=== PATIENT | female | born 1955 | race Caucasian/White ===

== ENCOUNTER → 2016-07-27 | Outpatient (CLI) | payer BC ==
--- NOTE | 2016-07-28 09:52 | MM ---
Reason for exam: screening (asymptomatic). Last mammogram was performed 1 year and 1 month ago. History: Patient is postmenopausal. Family history of breast cancer in sister at age 32 and breast cancer in sister at age 45. Benign excisional biopsy of the right breast, 1979. Took estrogen for 10 years beginning at age 45. Took progesterone for 10 years beginning at age 45. Physical Findings: A clinical breast exam by your physician is recommended on an annual basis and results should be correlated with mammographic findings. MG Screening Mammo w CAD Bilateral CC and MLO view(s) were taken. Prior study comparison: July 01, 2015, bilateral MG screening mammo w CAD. June 17, 2014, bilateral MG screening mammo w CAD. The breast tissue is heterogeneously dense. This may lower the sensitivity of mammography. There is chronic nodularity bilaterally, stable. No significant changes when compared with prior studies. ASSESSMENT: Benign, BI-RAD 2 RECOMMENDATION: Routine screening mammogram of both breasts in 1 year.
== END | disposition home or self-care (01) ==
LOC: RADMAMWWP 08:34
PROVIDERS: ATTEND Internal Medicine
DX: Z12.31 Encounter for screening mammogram for malignant neoplasm of breast (principal)

== ENCOUNTER → 2017-08-07 | Outpatient (CLI) | payer BC ==
--- NOTE | 2017-08-08 10:45 | MM ---
Reason for exam: screening (asymptomatic). Last mammogram was performed 1 year ago. History: Patient is postmenopausal. Family history of breast cancer in sister at age 32 and breast cancer in sister at age 45. Benign excisional biopsy of the right breast, 1979. Took estrogen for 10 years beginning at age 45. Took progesterone for 10 years beginning at age 45. Physical Findings: A clinical breast exam by your physician is recommended on an annual basis and results should be correlated with mammographic findings. MG Screening Mammo w CAD Bilateral CC and MLO view(s) were taken. Prior study comparison: July 27, 2016, bilateral MG screening mammo w CAD. July 01, 2015, bilateral MG screening mammo w CAD. June 17, 2014, bilateral MG screening mammo w CAD. The breast tissue is heterogeneously dense. This may lower the sensitivity of mammography. Finding: There are typically benign dystrophic, round calcifications in both breasts. There is a chronic nodularity in the left breast. There is no discrete abnormality. ASSESSMENT: Benign, BI-RAD 2 RECOMMENDATION: Routine screening mammogram of both breasts in 1 year.
== END | disposition home or self-care (01) ==
LOC: RADMAMWWP 09:35
PROVIDERS: ATTEND Obstetrics & Gynecology
DX: Z12.31 Encounter for screening mammogram for malignant neoplasm of breast (principal)
CPT/HCPCS: 77067

== ENCOUNTER → 2018-10-02 | Outpatient (CLI) | payer MEDICARE ==
--- NOTE | 2018-10-03 10:54 | MM ---
Reason for exam: screening (asymptomatic). Last mammogram was performed 1 year and 2 months ago. History: Patient is postmenopausal. Family history of breast cancer in sister at age 32 and breast cancer in sister at age 45. Benign excisional biopsy of the right breast, 1979. Took estrogen for 10 years beginning at age 45. Took progesterone for 10 years beginning at age 45. Physical Findings: A clinical breast exam by your physician is recommended on an annual basis and results should be correlated with mammographic findings. MG 3D Screening Mammo W/Cad Bilateral CC and MLO view(s) were taken. Prior study comparison: August 07, 2017, bilateral MG screening mammo w CAD. July 27, 2016, bilateral MG screening mammo w CAD. The breast tissue is heterogeneously dense. This may lower the sensitivity of mammography. Post surgical change on the right. Stable left inferior middle depth asymmetry. ASSESSMENT: Benign, BI-RAD 2 RECOMMENDATION: Routine screening mammogram of both breasts in 1 year.
== END | disposition home or self-care (01) ==
LOC: RADMAMWWP 08:09
PROVIDERS: ATTEND Internal Medicine
DX: Z12.31 Encounter for screening mammogram for malignant neoplasm of breast (principal)
CPT/HCPCS: 77063; 77067

== ENCOUNTER → 2020-01-30 | Outpatient (CLI) | payer MEDICARE ==
--- NOTE | 2020-02-02 10:14 | MM ---
Reason for exam: screening (asymptomatic). Last mammogram was performed 1 year and 4 months ago. History: Patient is postmenopausal. Family history of breast cancer in sister at age 32 and breast cancer in sister at age 45. Benign excisional biopsy of the right breast, 1979. Took estrogen for 10 years beginning at age 45. Took progesterone for 10 years beginning at age 45. Physical Findings: A clinical breast exam by your physician is recommended on an annual basis and results should be correlated with mammographic findings. MG 3D Screening Mammo W/Cad Bilateral CC and MLO view(s) were taken. Prior study comparison: October 02, 2018, bilateral MG 3d screening mammo w/cad. August 07, 2017, bilateral MG screening mammo w CAD. There are scattered fibroglandular densities. No significant changes when compared with prior studies. ASSESSMENT: Benign, BI-RAD 2 RECOMMENDATION: Routine screening mammogram of both breasts in 1 year.
== END | disposition home or self-care (01) ==
LOC: RADMAMWWP 11:14
PROVIDERS: ATTEND Internal Medicine
DX: Z12.31 Encounter for screening mammogram for malignant neoplasm of breast (principal)
CPT/HCPCS: 77063; 77067

== ENCOUNTER → 2020-11-16 | Outpatient (CLI) | payer MEDICARE ==
--- NOTE | 2020-11-16 12:05 | EST ---
EXERCISE STRESS AGE: 65 SEX: Female HT: 5'5" WT: 135 pounds PROTOCOL: Cardiolite Nikunj STAGE: II DURATION OF EXERCISE: 7 minutes 10 seconds HEART RATE REST: 73 BLOOD PRESSURE REST: 141/78 MAXIMUM HEART RATE ACHIEVED: 150 MAXIMUM BLOOD PRESSURE: 181/76 85% MPHR: 130 100% MPHR: 153 METS: 8.7 INDICATIONS: CLINICAL INFORMATION: Baseline rhythm is a sinus mechanism, rate of 73, normal axis and intervals, poor R progression from V1 to V3. Baseline blood pressure 141/78 mmHg. Patient exercised on Nikunj protocol for 7 minutes 10 seconds reaching peak rate 150 beats per minute which is equal to 98% maximum predicted heart rate. Peak blood pressure are 181/76 mmHg. Test was terminated secondary to fatigue. There was no chest pain. Electrocardiograph monitoring revealed no evidence of diagnostic ischemic ST deviation. Cardiolite was injected at peak exercise. CONCLUSION: 1. Average exercise tolerance with normal electrocardiograph response to exercise. 2. Nuclear images will be reported separately. MMODL / IJN: [id number] /
--- NOTE | 2020-11-16 12:27 | NM ---
EXAMINATION TYPE: NM stress cardiolite complete DATE OF EXAM: 11/16/2020 COMPARISON: NONE HISTORY: Septal myocardial infarction TECHNIQUE: After the intravenous administration of 9.5 mCi Tc 99m Sestamibi - Rest images obtained 4 5 minutes post injection. The patient exercised using a JESUS protocol and 1 minute prior to peak e xercise was injected with 25.3 mCi Tc 99m Sestamibi - Stress images obtained 10 minutes post injectio n. FINDINGS: Targeted heart rate was achieved during performance of the study. Review of stress and rest SPECT perez ges demonstrates no distinct perfusion abnormality. Gated analysis shows minimal dysmotility of the septum wall. There is septal wall motion with no evidence of complete scar. Estimated left ventricula r ejection fraction of 73 %. IMPRESSION: 1. No scintigraphic evidence for reversible ischemia. 2. Ejection fraction 73%. 3. Minimal septal wall dysmotility.
== END | disposition home or self-care (01) ==
LOC: RADNMMAIN 08:21
PROVIDERS: ATTEND Internal Medicine
DX: I21.29 ST elevation (STEMI) myocardial infarction involving other sites (principal)
CPT/HCPCS: 93017; 78452; A9500

== ENCOUNTER → 2020-12-09 | Outpatient (CLI) | payer MEDICARE ==
--- NOTE | 2020-12-11 15:00 | ECHOF ---
Referral Reason:I21.29 MEASUREMENTS -------- HEIGHT: 168.9 cm WEIGHT: 59.0 kg BP: 122/58 IVSd: 1.1 cm (0.6 - 1.1) LVIDd: 3.6 cm (3.9 - 5.3) LVPWd: 1.0 cm (0.6 - 1.1) EDV(Teich): 55 ml IVSs: 1.4 cm LVIDs: 2.3 cm LVPWs: 1.3 cm %IVS Thck: 26 % ESV(Teich): 18 ml EF(Teich): 67 % %FS: 36 % SV(Teich): 37 ml LA Diam: 3.0 cm (2.7 - 3.8) RVIDd: 2.9 cm (< 3.3) LALs A4C: 4.5 cm LAAs A4C: 12.5 cm LAESV A-L A4C: 29 ml LAESV MOD A4C: 26 ml LALs A2C: 5.9 cm LAAs A2C: 13.8 cm LAESV A-L A2C: 27 ml LAESV MOD A2C: 25 ml LAESV(A-L): 32 ml LAESV Index (A-L): 19.14 ml/m Ao Diam: 2.5 cm (2.0 - 3.7) AV Cusp: 1.8 cm (1.5 - 2.6) EPSS: 0.3 cm MV E Ramírez: 0.67 m/s MV DecT: 205 ms MV Dec [place]: 3.3 m/s MV A Ramírez: 0.51 m/s MV E/A Ratio: 1.32 MV PHT: 59 ms AV Vmax: 1.38 m/s AV maxP.57 mmHg TR Vmax: 2.51 m/s TR maxP.18 mmHg RAP: 5.00 mmHg RVSP: 30.18 mmHg MV EF SLOPE: 127.40 mm/s (70 - 150) MV EXCURSION: 17.70 mm (> 18.000) FINDINGS -------- Sinus rhythm. This was a technically good study. The left ventricular size is normal. Left ventricular wall thickness is normal. Overall left vent ricular systolic function is normal with, an EF between 60 - 65 %. The right ventricle is normal in size. Normal LA size by volume 22+/-6 ml/m2. The right atrium is normal in size. Interatrial and interventricular septum intact. The aortic valve is trileaflet, and appears structurally normal. No aortic stenosis or regurgitation. Mild mitral regurgitation is present. Mild tricuspid regurgitation present. Right ventricular systolic pressure is normal at < 35 mmHg. Trace/mild (physiologic) pulmonic regurgitation. The aortic root size is normal. Normal inferior vena cava with normal inspiratory collapse consistent with estimated right atrial pre ssure of 5 mmHg. There is no pericardial effusion. CONCLUSIONS -------- 1. The left ventricular size is normal. 2. Left ventricular wall thickness is normal. 3. Overall left ventricular systolic function is normal with, an EF between 60 - 65 %. 4. The aortic valve is trileaflet, and appears structurally normal. No aortic stenosis or regurgitati on. 5. Mild mitral regurgitation is present. 6. Mild tricuspid regurgitation present. 7. Trace/mild (physiologic) pulmonic regurgitation. 8. There is no pericardial effusion. [employer]: Janell Sher RDCS
== END | disposition home or self-care (01) ==
LOC: RADECHMAIN 13:02
PROVIDERS: ATTEND Internal Medicine
DX: I08.8 Other rheumatic multiple valve diseases (principal)
CPT/HCPCS: 93306

== ENCOUNTER → 2021-01-31 | Outpatient (CLI) | payer MEDICARE ==
--- NOTE | 2021-02-02 08:19 | MM ---
Reason for exam: screening (asymptomatic). Last mammogram was performed 1 year ago. History: Patient is postmenopausal. Family history of breast cancer in sister at age 32 and breast cancer in sister at age 45. Benign excisional biopsy of the right breast, 1979. Took hormonal contraceptives for 2 years. Took estrogen for 10 years beginning at age 45. Took progesterone for 10 years beginning at age 45. Physical Findings: A clinical breast exam by your physician is recommended on an annual basis and results should be correlated with mammographic findings. MG 3D Screening Mammo W/Cad Bilateral CC and MLO view(s) were taken. Prior study comparison: January 30, 2020, bilateral MG 3d screening mammo w/cad. October 02, 2018, bilateral MG 3d screening mammo w/cad. The breast tissue is heterogeneously dense. This may lower the sensitivity of mammography. There is chronic nodularity bilaterally. No significant changes when compared with prior studies. ASSESSMENT: Benign, BI-RAD 2 RECOMMENDATION: Routine screening mammogram of both breasts in 1 year.
== END | disposition home or self-care (01) ==
LOC: RADMAMWWP 09:32
PROVIDERS: ATTEND Internal Medicine
DX: Z12.31 Encounter for screening mammogram for malignant neoplasm of breast (principal); Z78.0 Asymptomatic menopausal state; Z80.3 Family history of malignant neoplasm of breast; Z79.3 Long term (current) use of hormonal contraceptives
CPT/HCPCS: 77063; 77067

== ENCOUNTER → 2022-02-01 | Outpatient (CLI) | payer MEDICARE ==
--- NOTE | 2022-02-02 19:27 | MM ---
Reason for Exam: Screening (asymptomatic). Last screening mammogram was performed 12 month(s) ago. Patient History: Menarche at age 12. First Full-Term at age 19. Postmenopausal. Patient has history of breast feeding. Estrogen, starting at age 45 for 10 years. Progesterone, starting at age 45 for 10 years. Patient used Hormonal Contraceptives for 2 years. 1980, Benign Excisional Biopsy on the right side. Sister had breast cancer, age 32. Sister had breast cancer, age 45. Risk Values: Morena 5 year model risk: 7.4%. NCI Lifetime model risk: 22.2%. Prior Study Comparison: 07/27/2016 Bilateral Screening Mammogram, [facility]. 08/07/2017 Bilateral Screening Mammogram, [facility]. 10/02/2018 Bilateral Screening Mammogram, [facility]. 01/30/2020 Bilateral Screening Mammogram, [facility]. 01/31/2021 Bilateral Screening Mammogram, [facility]. Tissue Density: The breast tissue is heterogeneously dense. This may lower the sensitivity of mammography. Findings: Analyzed By CAD. Chronic nodularity left breast. Either a dense focal calcification versus a microclip related to prior biopsy in the posterior upper-outer quadrant of the left breast. Clinically correlate. Otherwise, no significant change from prior exams. Overall Assessment: Benign, BI-RAD 2 Management: Screening Mammogram of both breasts in 1 year. 1. We note that patient's lifetime risk for development of breast cancer as over 20%. The patient may qualify for alternating screening mammogram and screening breast MRI at 6 month intervals. Genetic testing can also be considered. 2. Patient should continue monthly self breast exams. 3. A clinical breast exam by your physician is recommended on an annual basis. 4. This exam should not preclude additional follow-up of suspicious palpable abnormalities. Electronically signed and approved by: Gerry Erickson M.D. Radiologist
== END | disposition home or self-care (01) ==
LOC: RADMAMWWP 08:58
PROVIDERS: ATTEND Internal Medicine
DX: Z12.31 Encounter for screening mammogram for malignant neoplasm of breast (principal); Z78.0 Asymptomatic menopausal state; Z80.3 Family history of malignant neoplasm of breast
CPT/HCPCS: 77063; 77067